=== PATIENT | female | born 1980 | race Caucasian/White ===

== ENCOUNTER 2017-12-02 21:19 | Inpatient (IN) | payer MEDICAID ==
[~2017-12-02] VITALS: Ht 160 cm; Wt 65.8 kg
[2017-12-02] MEDS ORDERED: SODIUM CHLORIDE 0.9% 1,000 ML IV ONE (22:25)
[2017-12-02] MEDS ORDERED: ONDANSETRON HCL 4MG/2ML VIAL IV STA (22:25)
[2017-12-02] MEDS ORDERED: MORPHINE SULFATE 4 MG/ML CPJ (NOT FOR IM USE) IV STA (22:25)
[2017-12-02] MEDS ORDERED: PANTOPRAZOLE SODIUM 40 MG/VIAL IV STA (22:25)
[2017-12-02 22:42] LABS: BASOPHILS % 1.1 % (0.0-2.0); EOSINOPHILS % 4.6 % (0.0-5.0); HEMATOCRIT. 38.5 % (36.0-48.0); HEMOGLOBIN. 13.3 g/dL (12.0-16.0); LYMPHOCYTES % 30.4 % (20.0-50.0); MEAN CORPUSCULAR HEMOGLOBIN 29.7 pg (28.0-32.0); MEAN CORPUSCULAR VOLUME 86.4 fL (81.0-99.0); MEAN PLATELET VOLUME 8.9 fl (7.4-10.4); MONOCYTES % 6.2 % (2.0-8.0); NEUTROPHILS % 57.7 % (40.0-76.0); PLATELET 283 x1000/uL (130-400); RED BLOOD CELL COUNT 4.46 mill/uL (4.2-5.4)
[2017-12-02 22:45] LABS: CHLORIDE 108 mEq/L (98-107)
[2017-12-02 22:46] LABS: INR 1.1; PROTHROMBIN TIME 11.6 sec (9.4-11.6)
[2017-12-02 23:02] LABS: HCG SCREEN NEGATIVE
[2017-12-02] MEDS ORDERED: IOHEXOL-300 100 ML BOTTLE ONE (23:56)
[2017-12-03 01:16] LABS: CLARITY URINE CLEAR (CLEAR); COLOR URINE YELLOW (YELLOW); KETONES URINE NEGATIVE (NEGATIVE); LEUKOCYTE ESTERASE URINE NEGATIVE (NEGATIVE); NITRITE URINE NEGATIVE (NEGATIVE); OCCULT BLOOD URINE NEGATIVE (NEGATIVE); PROTEIN URINE NEGATIVE (NEGATIVE); SPECIFIC GRAVITY URINE 1.042 (1.005-1.030); UROBILINOGEN URINE 0.2 E.U./dL (0.2-1.0)
[2017-12-03 03:00] VITALS: BP 123/74
[2017-12-03 03:30] VITALS: BP 123/74
[2017-12-03] MEDS ORDERED: SODIUM CHLORIDE 0.9% 1,000 ML IV SCH (04:45)
[2017-12-03] MEDS: HYDROCODONE/ACETAMINOPHEN 5/325MG TABLET PO PRN ×2 (05:08→15:20)
[2017-12-03] MEDS: ONDANSETRON HCL 4MG/2ML VIAL IV PRN ×2 (05:14→20:20)
[2017-12-03 08:00] VITALS: BP 116/77
[2017-12-03] MEDS ORDERED: DOCUSATE SODIUM 100MG CAPSULE PO PRN (08:45)
[2017-12-03] MEDS ORDERED: GUAIFENESIN 200MG/10ML SUGAR FREE UDC PO PRN (08:45)
[2017-12-03] MEDS ORDERED: HYDROCODONE/ACETAMINOPHEN 10/325MG TABLET PO PRN (08:45)
[2017-12-03] MEDS ORDERED: ONDANSETRON HCL 4MG/2ML VIAL IV PRN (08:45)
[2017-12-03] MEDS ORDERED: ACETAMINOPHEN 650MG SUPP PR PRN (08:45)
[2017-12-03] MEDS ORDERED: HYDROCODONE/ACETAMINOPHEN 5/325MG TABLET PO PRN (08:45)
[2017-12-03] MEDS ORDERED: ACETAMINOPHEN 325MG TABLET PO PRN (08:45)
[2017-12-03] MEDS ORDERED: DIPHENHYDRAMINE 50MG/ML VIAL IV PRN (08:45)
[2017-12-03] MEDS ORDERED: CLONIDINE 0.1MG TABLET PO PRN (08:45)
[2017-12-03] MEDS ORDERED: NA PHOS,M-B/NA PHOS,DI-BA ENEMA 118ML PR PRN (08:45)
[2017-12-03] MEDS ORDERED: MAGNESIUM/ALUMINUM HYDROXIDE/SIMETHICONE 30ML UDC PO PRN (08:45)
[2017-12-03] MEDS ORDERED: LORAZEPAM 0.5MG TABLET PO PRN (08:45)
[2017-12-03] MEDS ORDERED: IPRATROPIUM/ALBUTEROL 0.5-3(2.5)MG/3ML NEB INH PRN (08:45)
[2017-12-03] MEDS ORDERED: ACETAMINOPHEN 650MG/20.3ML UDC GT PRN (08:45)
[2017-12-03] MEDS ORDERED: PANTOPRAZOLE SODIUM 40 MG/VIAL IV SCH (09:00)
[2017-12-03 09:22] LABS: HEMATOCRIT 37.8 % (36.0-48.0); HEMOGLOBIN 13.2 g/dL (12.0-16.0)
[2017-12-03 09:41] LABS: TOTAL IRON BINDING CAPACITY 393 ug/dL (250-450)
[2017-12-03 10:05] LABS: FOLIC ACID (FOLATE) SERUM >20 ng/mL ng/mL (>5.38)
[2017-12-03 10:16] LABS: VITAMIN B12 SERUM 353 pg/mL (211-911)
[2017-12-03 11:05] LABS: *AMPHETAMINES SCREEN URINE NEGATIVE (NEGATIVE); *BARBITURATES SCREEN URINE NEGATIVE (NEGATIVE); *BENZODIAZEPINES SCREEN URINE NEGATIVE (NEGATIVE); *COCAINE SCREEN URINE NEGATIVE (NEGATIVE); METHADONE URINE SCREEN NEGATIVE (NEGATIVE)
[2017-12-03 11:06] LABS: PHENCYCLIDINE URINE SCREEN NEGATIVE (NEGATIVE)
[2017-12-03 11:14] LABS: CANNABINOID URINE SCREEN PRESUMTIVE POSITIVE (NEGATIVE); OPIATES URINE SCREEN PRESUMTIVE POSITIVE (NEGATIVE)
[2017-12-03] MEDS: DEXT 5%/0.45% NACL KCL 20MEQ/L 1,000 ML IV SCH ×2 (11:18→20:21)
[2017-12-03 12:00] VITALS: BP 133/73
[2017-12-03 14:45] LABS: HEMATOCRIT 38.9 % (36.0-48.0); HEMOGLOBIN 13.5 g/dL (12.0-16.0)
[2017-12-03 15:05] LABS: CREATINE KINASE 60 IU/L (26-192)
[2017-12-03 15:59] VITALS: BP 108/76
[2017-12-03 20:00] VITALS: BP 140/87
[2017-12-03] MEDS: PANTOPRAZOLE SODIUM 40 MG/VIAL IV SCH (20:20)
[2017-12-03 22:06] LABS: HEMATOCRIT 38.4 % (36.0-48.0); HEMOGLOBIN 13.4 g/dL (12.0-16.0)
[2017-12-03 22:20] LABS: CREATINE KINASE 73 IU/L (26-192)
[2017-12-04] VITALS: BP 140/87
[2017-12-04 04:00] VITALS: BP 115/67
[2017-12-04] MEDS: DEXT 5%/0.45% NACL KCL 20MEQ/L 1,000 ML IV SCH ×2 (06:26→20:00)
[2017-12-04 07:05] LABS: EOSINOPHILS % 4.7 % (0.0-5.0); HEMOGLOBIN. 13.1 g/dL (12.0-16.0); LYMPHOCYTES % 19.6 % (20.0-50.0); MEAN CORPUSCULAR HEMOGLOBIN 29.3 pg (28.0-32.0); MEAN CORPUSCULAR VOLUME 86.8 fL (81.0-99.0); MEAN PLATELET VOLUME 8.8 fl (7.4-10.4); MONOCYTES % 7.5 % (2.0-8.0); NEUTROPHILS % 67.2 % (40.0-76.0); PLATELET 266 x1000/uL (130-400); RED BLOOD CELL COUNT 4.49 mill/uL (4.2-5.4); RED CELL DISTRIBUTION WIDTH 16.2 % (11.6-14.6)
[2017-12-04 07:13] LABS: INR 1.1; PARTIAL THROMBOPLASTIN TIME 24.7 sec (23.4-31.0); PROTHROMBIN TIME 11.6 sec (9.4-11.6)
[2017-12-04 07:55] LABS: CHLORIDE 110 mEq/L (98-107)
[2017-12-04 08:09] LABS: PHOSPHORUS 2.8 mg/dL (2.5-4.9)
[2017-12-04 08:10] LABS: LDL CHOLESTEROL 114 mg/dL (5-100)
[2017-12-04 08:11] LABS: HDL CHOLESTEROL 52 mg/dL (40-59)
[2017-12-04 08:14] LABS: T4 FREE 1.22 ng/dL (0.76-1.46)
[2017-12-04] MEDS: PANTOPRAZOLE SODIUM 40 MG/VIAL IV SCH ×2 (08:29→20:27)
[2017-12-04 08:49] VITALS: BP 130/74
[2017-12-04 08:56] LABS: BG BASE EXCESS -3.5 mmol/L (-2.0-2.0); BG CARBOXYHEMOGLOBIN 0.8 % (0.5-1.5); BG DEOXYHEMOGLOBIN 1.4 % (0.0-5.0); BG FRACTION INSPIRED OXYGEN 21; BG HCO3 ACT 17.5 mmol/L (22.0-26.0); BG METHEMOGLOBIN 0.2 % (0.0-1.5); BG OXYGEN SATURATION 98.6 % (92.0-98.5); BG OXYHEMOGLOBIN 97.6 % (94.0-97.0); BG PCO2 22.8 mmHg (35.0-45.0); BG PH 7.503 (7.350-7.450); BG PO2 116.2 mmHg (75.0-100.0); BG SAMPLE SITE RIGHT RADIAL; BG TOTAL HEMOGLOBIN 14.2 g/dL (12.0-18.0); BG VENT MODE ROOM AIR
[2017-12-04] MEDS ORDERED: MIDAZOLAM HCL 5 MG/5 ML VIAL ONE (11:46)
[2017-12-04] MEDS ORDERED: FENTANYL CITRATE/PF 50MCG/ML 2ML VIAL ONE (11:46)
[2017-12-04] MEDS ORDERED: MIDAZOLAM HCL 2 MG/2 ML VIAL IV PRN (11:48)
[2017-12-04] MEDS ORDERED: FENTANYL CITRATE/PF 50MCG/ML 2ML VIAL IV PRN (11:49)
[2017-12-04] MEDS ORDERED: SIMETHICONE 40 MG/0.6 ML 30ML ONE (11:49)
[2017-12-04] MEDS ORDERED: STERILE WATER FOR INJECTION 10ML VIAL ONE (13:10)
[2017-12-04 16:22] VITALS: BP 131/78
[2017-12-04] MEDS ORDERED: SORBITOL 70% SOLN 30ML PO SCH (18:00)
[2017-12-04] MEDS: ONDANSETRON HCL 4MG/2ML VIAL IV PRN (19:59)
[2017-12-04 20:00] VITALS: BP 116/86
[2017-12-05] VITALS: BP 110/75
[2017-12-05 04:00] VITALS: BP 125/81
[2017-12-05] MEDS: ONDANSETRON HCL 4MG/2ML VIAL IV PRN (04:06)
[2017-12-05] MEDS: DEXT 5%/0.45% NACL KCL 20MEQ/L 1,000 ML IV SCH ×3 (04:06→15:36)
[2017-12-05 06:00] VITALS: BP 114/72
[2017-12-05] MEDS ORDERED: SORBITOL 70% SOLN 30ML PO SCH (06:00)
[2017-12-05 08:00] VITALS: BP 115/72
[2017-12-05] MEDS: PANTOPRAZOLE SODIUM 40 MG/VIAL IV SCH (08:19)
[2017-12-05] MEDS ORDERED: NA PHOS,M-B/NA PHOS,DI-BA ENEMA 118ML PR NR (13:30)
[2017-12-05] MEDS ORDERED: MIDAZOLAM HCL 5 MG/5 ML VIAL IV PRN (14:04)
[2017-12-05] MEDS ORDERED: FENTANYL CITRATE/PF 50MCG/ML 2ML VIAL ONE (14:04)
[2017-12-05] MEDS ORDERED: MIDAZOLAM HCL 5 MG/5 ML VIAL ONE (14:05)
[2017-12-05] MEDS ORDERED: FENTANYL CITRATE/PF 50MCG/ML 2ML VIAL IV PRN (14:05)
[2017-12-05] MEDS ORDERED: DIPHENHYDRAMINE 50MG/ML VIAL IV PRN (14:13)
[2017-12-05] MEDS ORDERED: DIPHENHYDRAMINE 50MG/ML VIAL ONE (14:19)
[2017-12-05 17:32] VITALS: BP 115/78
== END 2017-12-05 18:50 | disposition home or self-care (01) | DRG 241 ==
LOC: ER 21:19 → 8WST 12-03 00:47 → EDBEDREQ 12-03 00:48 → EDBEDREQTM 12-03 00:48 → ENRESERV 12-03 02:52
PROVIDERS: ADMIT Internal Medicine; ATTEND Internal Medicine
PROC: 0DB38ZX Excision of Lower Esophagus, Via Natural or Artificial Opening Endoscopic, Diagnostic (ICD-10-PCS; 2017-12-04)
PROC: 0DB68ZX Excision of Stomach, Via Natural or Artificial Opening Endoscopic, Diagnostic (ICD-10-PCS; 2017-12-04)
PROC: 0DBP8ZX Excision of Rectum, Via Natural or Artificial Opening Endoscopic, Diagnostic (ICD-10-PCS; 2017-12-05)
PROC: 0DBN8ZX Excision of Sigmoid Colon, Via Natural or Artificial Opening Endoscopic, Diagnostic (ICD-10-PCS; principal; 2017-12-05 14:30)
DX: K29.71 Gastritis, unspecified, with bleeding (principal); K57.31 Diverticulosis of large intestine without perforation or abscess with bleeding; K52.9 Noninfective gastroenteritis and colitis, unspecified; K20.9 Esophagitis, unspecified; N83.209 Unspecified ovarian cyst, unspecified side; E87.6 Hypokalemia; K44.9 Diaphragmatic hernia without obstruction or gangrene; K64.4 Residual hemorrhoidal skin tags; B96.81 Helicobacter pylori [H. pylori] as the cause of diseases classified elsewhere; D12.5 Benign neoplasm of sigmoid colon; K62.1 Rectal polyp
CPT/HCPCS: 36415; 36600; 71045; 74177; 76700; 80048; 80053; 80061; 80305; 81003; 82270; 82375; 82550; 82607; 82746; 82805; 83540; 83550; 83605; 83690; 83735; 84100; 84439; 84443; 84481; 84484; 84703; 85014; 85018; 85025; 85610; 85730; 86677; 86850; 86900; 87040; 88305; 88312; 96361; 96374; 96375; 99285; A4216; C9113; J1200; J2250; J2270; J2405; J3010; J7030; Q9967